=== PATIENT | female | born 1990 | race Hispanic/Latino ===

== ENCOUNTER 2017-06-10 11:27 | Inpatient (IN) | payer OTHER ==
[2017-06-10] MEDS ORDERED: CEFAZOLIN SODIUM 1 GM VIAL IVP PRN (13:30)
[2017-06-10] MEDS ORDERED: LACTATED RINGERS 1000ML 1,000 ML IV SCH (13:30)
[2017-06-10 13:33] LABS: HEMATOCRIT 33.7 % (36-48); MEAN CORPUSCULAR HEMOGLOBIN 29.2 pg (27.0-33.0); MEAN CORPUSCULAR HGB CONC 33.9 g/dL (32.0-36.0); PLATELET COUNT (AUTO) 238 K/uL (130-400); RED BLOOD CELL COUNT(AUTO) 3.92 MIL/uL (4.00-5.50); RED CELL DISTRIBUTION WIDTH 16.6 % (11.0-15.5); WHITE BLOOD COUNT (AUTO) 12.5 K/uL (4.8-10.8)
[2017-06-10] MEDS ORDERED: PROPOFOL 10 MG/ML 20ML VIAL IV ONE (13:37)
[2017-06-10] MEDS ORDERED: MIDAZOLAM HCL 1 MG/ML 2ML VIAL ONE (13:42)
[2017-06-10] MEDS ORDERED: EPHEDRINE-NS PF 50MG/5ML SYRINGE IV ONE (13:42)
[2017-06-10] MEDS ORDERED: DURAMORPH PF1 MG/ML 10ML AMP IV ONE (13:48)
[2017-06-10] MEDS ORDERED: ONDANSETRON HCL 4 MG/2 ML VIAL ONE ×2 (14:02→14:48)
[2017-06-10] MEDS ORDERED: CEFAZOLIN SODIUM 1 GM VIAL IVP ONE (14:09)
[2017-06-10] MEDS ORDERED: OXYTOCIN 10 UNIT/1ML 10ML VIAL ONE (14:15)
[2017-06-10] MEDS ORDERED: PHENYLEPHRINE HCL 1% NS ONE (14:34)
[2017-06-10] MEDS ORDERED: NALOXONE HCL 0.4 MG/1 ML ML IVP PRN (15:00)
[2017-06-10] MEDS ORDERED: ONDANSETRON HCL 4 MG/2 ML 8 MG in SODIUM CHLORIDE 0.9% 50 ML IVP NR (15:00)
[2017-06-10] MEDS ORDERED: ONDANSETRON HCL 4 MG/2 ML VIAL IVP PRN ×2 (15:00)
[2017-06-10] MEDS ORDERED: MORPHINE SULFATE 2 MG/ML 1ML SYG IVP PRN (15:00)
[2017-06-10] MEDS ORDERED: EPHEDRINE SULFATE 50 MG/ML AMPULE IVP PRN (15:00)
[2017-06-10] MEDS ORDERED: METOCLOPRAMIDE 10 MG/2 ML VIAL IVP PRN (15:00)
[2017-06-10] MEDS ORDERED: HYDROCODONE/ACETAMINOPHEN 5/325 MG TAB PO PRN ×2 (15:00)
[2017-06-10] MEDS ORDERED: DiphenhydrAMINE HCL 50 MG/ML VIAL IVP PRN (15:00)
[2017-06-10] MEDS ORDERED: PROMETHAZINE HCL 25 MG/ML 1ML AMPULE IM PRN (15:00)
[2017-06-10] MEDS ORDERED: LACTATED RINGERS 1000ML 1,000 ML IV ONE (16:26)
[2017-06-10] MEDS ORDERED: OXYTOCIN 10 USP UNITS/ML ONE ×2 (16:26→21:16)
[2017-06-10 16:45] VITALS: BP 112/56
[2017-06-10] MEDS ORDERED: FERR-82 PO (17:05)
[2017-06-10] MEDS ORDERED: PREN-154 PO (17:05)
[2017-06-10] MEDS ORDERED: OXYTOCIN-LR 20 UNITS/1000 ML 1,000 ML IV PRN (18:36)
[2017-06-10] MEDS ORDERED: DEXTROSE 5 %-0.45 % NACL 1,000 ML IV PRN (18:45)
[2017-06-10] MEDS ORDERED: SODIUM CHLORIDE 0.9% 10 ML VIAL IVP PRN (18:45)
[2017-06-10 19:35] VITALS: BP 100/65
[2017-06-10 23:20] VITALS: BP 110/58
[2017-06-11 03:28] VITALS: BP 105/56
[2017-06-11] MEDS ORDERED: BISACODYL 10 MG SUPP.RECT RC PRN (03:30)
[2017-06-11] MEDS ORDERED: LANOLIN 30GM OINTMENT TP PRN (03:30)
[2017-06-11] MEDS ORDERED: HYDROCODONE/ACETAMINOPHEN 5/325 MG TAB PO PRN (03:30)
[2017-06-11] MEDS ORDERED: DIPH,PERTUSS(ACELL),TET VAC/PF 0.5 ML VIAL IM SCH (03:30)
[2017-06-11] MEDS ORDERED: ACETAMINOPHEN EXTRA STRENGTH 500 MG TABLET PO PRN (03:30)
[2017-06-11] MEDS ORDERED: FLU VACC QS2017-18 36MOS UP/PF 60 MCG/0.5 ML ML IM ONE ×2 (03:45→05:51)
[2017-06-11 05:38] LABS: HEMATOCRIT 31.2 % (36-48); MEAN CORPUSCULAR HEMOGLOBIN 28.9 pg (27.0-33.0); MEAN CORPUSCULAR HGB CONC 33.3 g/dL (32.0-36.0); MEAN CORPUSCULAR VOLUME 86.6 fL (79-99); PLATELET COUNT (AUTO) 208 K/uL (130-400); RED CELL DISTRIBUTION WIDTH 16.8 % (11.0-15.5); WHITE BLOOD COUNT (AUTO) 14.5 K/uL (4.8-10.8)
[2017-06-11 07:50] VITALS: BP 103/66
[2017-06-11 08:18] LABS: HEPATITIS Bs ANTIGEN SCREEN P Negative (Negative)
[2017-06-11] MEDS: SIMETHICONE 80 MG TAB.CHEW PO PRN ×3 (08:37→21:16)
[2017-06-11] MEDS: DOCUSATE SODIUM 100 MG CAP PO SCH ×2 (08:37→21:16)
[2017-06-11] MEDS: ACETAMINOPHEN-CODEINE 300/30MG TAB PO PRN ×3 (08:38→23:34)
[2017-06-11 11:43] VITALS: BP 100/67
[2017-06-11] MEDS: IBUPROFEN 600 MG TABLET PO PRN ×2 (13:13→21:18)
[2017-06-11 17:00] VITALS: BP 106/69
[2017-06-11 19:36] VITALS: BP 105/65
[2017-06-11 23:28] VITALS: BP 105/69
[2017-06-12 03:17] VITALS: BP 103/67
[2017-06-12] MEDS: ACETAMINOPHEN-CODEINE 300/30MG TAB PO PRN (06:48)
[2017-06-12 08:07] VITALS: BP 119/74
[2017-06-12] MEDS: DOCUSATE SODIUM 100 MG CAP PO SCH (09:02)
[2017-06-12] MEDS: SIMETHICONE 80 MG TAB.CHEW PO PRN (09:02)
[2017-06-12] MEDS: IBUPROFEN 600 MG TABLET PO PRN ×2 (09:03→16:54)
[2017-06-12 12:12] VITALS: BP 111/65
[2017-06-12 16:01] VITALS: BP 98/62
== END 2017-06-12 17:20 | disposition home or self-care (01) | DRG 766 ==
LOC: LDH 11:27 → OBSVTOIN 13:20 → WSH 16:45
PROVIDERS: ADMIT Obstetrics & Gynecology; ATTEND Obstetrics & Gynecology
PROC: 10D00Z1 Extraction of Products of Conception, Low, Open Approach (ICD-10-PCS; principal; 2017-06-10 14:00)
PROC: 3E0234Z Introduction of Serum, Toxoid and Vaccine into Muscle, Percutaneous Approach (ICD-10-PCS; 2017-06-11)
DX: O32.1XX0 Maternal care for breech presentation, not applicable or unspecified (principal); Z23 Encounter for immunization; Z37.0 Single live birth; Z3A.37 37 weeks gestation of pregnancy
CPT/HCPCS: 36415; 59510; 76805; 85027; 86592; 86850; 86900; 86901; 87340; 90715; A4344; A4450; A4606; G0378; J0690; J2250; J2274; J2405; J2590; J2704; J3490; J7120; Q2038